=== PATIENT | female | born 1990 | race American Indian/Alaskan Native ===

== ENCOUNTER 2021-06-23 15:22 | Emergency (ER) | payer SELFPAY ==
[2021-06-23 15:59] VITALS: BP 138/88
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
== END 2021-06-23 17:45 | disposition home or self-care (01) ==
LOC: ED 15:22
DX: S80.11XA Contusion of right lower leg, initial encounter (principal); S40.021A Contusion of right upper arm, initial encounter; Y04.8XXA Assault by other bodily force, initial encounter; Y93.89 Activity, other specified; Y92.89 Other specified places as the place of occurrence of the external cause; Y99.8 Other external cause status
CPT/HCPCS: 99282